=== PATIENT | female | born 1975 | race Asian ===

== ENCOUNTER 2022-01-11 05:15 | Day surgery (SDC) | payer BC ==
[~2022-01-11] VITALS: Ht 160 cm; Wt 54.4 kg
[2022-01-11] MEDS ORDERED: ONDANSETRON HCL 4 MG/2 ML VIAL ONE (07:30)
[2022-01-11] MEDS ORDERED: LR 1,000 ML IV.SOLN IV ONE (07:30)
[2022-01-11] MEDS ORDERED: ceFAZolin SODIUM 1 GM VIAL ONE (07:30)
[2022-01-11] MEDS ORDERED: fentaNYL CITRATE/PF 100 MCG/2 ML AMP ONE (07:30)
[2022-01-11] MEDS ORDERED: PROPOFOL 200MG/ 20ML VIAL (DIPRIVAN) IV ONE (07:30)
[2022-01-11] MEDS ORDERED: DEXAMETHASONE SOD PHOSPHATE 4 MG/ML VIAL ONE (07:30)
[2022-01-11] MEDS ORDERED: SEVOFLURANE 15 MIN GAS INH ONE (07:30)
[2022-01-11] MEDS ORDERED: MIDAZOLAM HCL 2 MG/2 ML VIAL (VERSED) ONE (07:30)
[2022-01-11] MEDS ORDERED: NS 1000 ML IV.SOLN IV ONE (07:30)
[2022-01-11] MEDS ORDERED: MEPERIDINE HCL/PF 25 MG/ML DISP.SYRIN IVP PRN (08:15)
[2022-01-11] MEDS ORDERED: LR 1,000 ML IV SCH (08:15)
[2022-01-11] MEDS ORDERED: MIDAZOLAM HCL 2 MG/2 ML VIAL (VERSED) IVP PRN (08:15)
[2022-01-11] MEDS ORDERED: HYDROmorphone 1 MG/ML INJ. CARTRIDGE IVP PRN (08:15)
[2022-01-11] MEDS ORDERED: METOCLOPRAMIDE HCL 10 MG/2 ML VIAL IVP PRN (08:15)
[2022-01-11] MEDS ORDERED: ACETAMINOPHEN I.V. 1000 MG 100 ML IV ONE (08:21)
[2022-01-11] MEDS ORDERED: OXYCODONE/ACETAMINOPHEN 5-325 TABLET PO PRN ×2 (08:45)
[2022-01-11] MEDS ORDERED: HYDROcodone/ACETAMIN 5-325 MG TAB (NORCO/ VICODIN) PO PRN (08:45)
[2022-01-11] MEDS ORDERED: ONDANSETRON HCL 4 MG/2 ML VIAL IVP PRN (08:45)
[2022-01-11] MEDS ORDERED: HYDROmorphone 1 MG/ML INJ. CARTRIDGE ONE (09:13)
[2022-01-11] MEDS: HYDROmorphone 1 MG/ML INJ. CARTRIDGE IVP PRN (09:16)
[2022-01-11 11:20] VITALS: BP_SYST 120
== END 2022-01-11 12:17 | disposition home or self-care (01) ==
LOC: SMU 05:15 → SDS 05:15
PROVIDERS: ATTEND Specialist
DX: N92.6 Irregular menstruation, unspecified (principal); R93.89 Abnormal findings on diagnostic imaging of other specified body structures; N93.8 Other specified abnormal uterine and vaginal bleeding; N73.6 Female pelvic peritoneal adhesions (postinfective); Z20.822 Contact with and (suspected) exposure to COVID-19; Z79.899 Other long term (current) drug therapy
CPT/HCPCS: 36415 ×2; 58340; 58558; 74740; 87426; 87635; 88305; 93005; J0131; J0690; J1100; J1170; J2405; J2704; J3010; J3465; J7030; J7120; Q9967